=== PATIENT | female | born 1935 | race Caucasian/White ===

== ENCOUNTER → 2016-05-07 | Outpatient (CLI) | payer OTHER ==
--- NOTE | 2016-05-07 12:17 | DX ---
Thoracolumbar Spine; 2 Views Reason for examination: Postoperative followup; comparison October 04, 2015. Findings: Postoperative changes of lumbar fusion are seen with rods and pedicle screws extending from T12 to S1. The hardware is intact. There is a scoliotic curvature convex towards the right. Disk spa ce prostheses are positioned from from L2-L3 to L5-S1. A spinous process clamp is present at T12-L1. Aortic calcification is noted without aneurysmal dilatation. There has been a prior right hip arthrop lasty. Impression: Stable postoperative findings of spinal fusion with intact hardware.
== END ==
LOC: FIMAGING 09:01
PROVIDERS: ATTEND Physician Assistant Surgical
DX: M43.26 Fusion of spine, lumbar region (principal)

== ENCOUNTER → 2017-06-29 | Outpatient (CLI) | payer OTHER | LOC: FIMAGING 14:26 | PROVIDERS: ATTEND Physician Assistant Surgical | DX: T84.296A Other mechanical complication of internal fixation device of vertebrae, initial encounter (principal); Y83.9 Surgical procedure, unspecified as the cause of abnormal reaction of the patient, or of later complication, without mention of misadventure at the time of the procedure; Z98.1 Arthrodesis status ==

== ENCOUNTER 2017-11-19 18:27 | Observation (INO) | payer OTHER ==
[2017-11-19] MEDS ORDERED: DILTIAZEM 30 MG TAB PO ONE (19:36)
[2017-11-19] MEDS ORDERED: ACETAMINOPHEN 325 MG TAB PO PRN (19:37)
[2017-11-19] MEDS ORDERED: ONDANSETRON 4 MG/2 ML VIAL IVP PRN (19:37)
[2017-11-19] MEDS ORDERED: ONDANSETRON DISINTEGRATING 4 MG TAB PO PRN (19:37)
[2017-11-19] MEDS ORDERED: FUROSEMIDE 20 MG/2 ML VIAL IVP ONE (19:39)
--- NOTE | 2017-11-19 19:44 | PDGENHP ---
History and Physical - Chief Complaint Acute edema - History of Present Illness PCP: Dr. Ureña Channel Layer: Dr. Rivas HPI: 82 yo F p/w acutely worsening edema located in the bilateral lower extremities with associated weight gain, orthopnea, oliguria, anorexia. The onset of symptoms is approximately 1 week ago, and duration worsening thereafter. She also notes shortness of breath exacerbated by ambulation and exertion. She denies chest pain or palpitations. She reports she is taking all of her home Rx as prescribed. She made her first f/u appointment today w/ Dr. Huff, and he noted that her weight was back up to her pre-hospital weight, and her legs appeared as edematous as they had been pre-hospitalization. Patient does note that she ambulates regularly and does not elevate her legs as much as she was during her recent hospitalization. Her appetite has been poor, and she has not been consuming substantial quantities of fluid, nor has she been adding salt to food. History Information - Allergies/Home Medication List Allergies/Adverse Reactions: No Known Allergies Allergy (Unverified 11/09/17 19:01) Home Medications: Estradiol/Norethindrone Acet [Activella 1 mg-0.5 mg Tablet] 1 each PO Q3D [Last Taken 11/07/17] Acetamn/Diphenhydramine 500/25 [Tylenol PM (*)] 1 tab PO HS 10/18/13 [Last Taken 11/08/17] Ascorbic Acid [Vitamin C 500 mg (*)] 1,000 mg PO DAILY 10/18/13 [Last Taken 07:00] Calcium Carbonate [[id number]] 500 mg PO DAILY 10/18/13 [Last Taken 10/18/13 07:00] Cholecalciferol Vit D3 [Vitamin D3 (*)] 2,000 units PO DAILY 10/18/13 [Last Taken 10/18/13 07:00] Herbals/Supplements -Info Only 1 ea PO DAILY 10/18/13 [Last Taken Unknown] Multivitamins [Multivitamin (*)] 1 tab PO DAILY 10/18/13 [Last Taken 10/18/13 07 :00] Vitamin B Complex [B Complex] 1 tab PO DAILY 10/18/13 [Last Taken 10/18/13 07:00 ] Ibuprofen [Motrin (*)] 200 - 400 mg PO TID PRN 11/09/17 [Last Taken Unknown] I have personally reviewed and updated: family history, medical history, social history, surgical history - Past Medical History atrial fibrillation (with RVR, on Eliquis), CHF (diastolic), hypertension, hyperlipidemia Additional medical history: Moderate MR. possible COPD. iron deficient anemia - Surgical History Additional surgical history: R hip, back, carpal tunnel - Family History Additional family history: son w/ WPW - Social History Smoking Status: Former smoker Alcohol Use: None Drug Use: None Additional social history: independent in ADLs Review of Systems Review of Systems: ROS: 10pt was reviewed & negative except for what was stated in HPI & below Constitutional: Reports: other (weight gain) Cardiac: Reports: edema Respiratory: Reports: shortness of breath Gastrointestinal: Reports: other (anorexia) Physical Exam Physical Exam: Temp Pulse Resp BP Pulse Ox 36.6 C 127 H 20 129/70 H 91 L 11/19/17 19:34 11/19/17 19:34 11/19/17 19:34 11/19/17 19:34 11/19/17 19:34 Constitutional: no apparent distress, not in pain, obese, No uncomfortable Eyes: PERRL, anicteric sclera, EOMI Ears, Nose, Mouth, Throat: moist mucous membranes, hearing normal, ears appear normal, no oral mucosal ulcers Cardiovascular: irregularly irregular, tachycardia, edema (2+ bilat LE), No systolic murmur, No JVD Respiratory: inspiratory crackles (bilat bases), No reduced air movement, No expiratory wheeze, No bronchial breath sounds, No respiratory distress Gastrointestinal: normoactive bowel sounds, soft, non-tender abdomen, distension (moderate), No guarding Skin: warm, other (no hyperpigmentation bilat LE) Neurologic: AAOx3, sensation intact bilaterally, No weakness Psychiatric: interacting appropriately, not anxious, not encephalopathic, thought process linear Lab Data & Imaging Review Visualized and Interpreted imaging results: Yes Interpretation: tele demonstrating Afib RVR rate 120s Assessment & Plan Assessment: 82 yo F p/w acute diastolic CHF exacerbation in setting of uncontrolled Afib RVR Plan: # Diastolic CHF exacerbation. Acute, new prob, further w/u. Reviewed recent records (DC Summary Dr. Jamil Reed 11/12/17 indicating one dose IV lasix, subsequent increase in PO from 20->40mg daily) -suspect recurrence is 2/2 uncontrolled Afib, as well as poor PO absorption in setting of likely bowel wall edema -control rate -give 20mg IV now, then 40mg IV bid tomorrow AM after rate under better control -daily weights/I/O -get BMP now, renal panel daily while on IV diuretics # Afib w/ RVR. Persistent, Dr. Snow's note from 11/12/17 indicates plan for anticoagulation for additional 3 weeks, then DCCV -CHADS-Vasc 4, cont on anticoagulation -increase dilt, give 30mg PO now, then increase AM dosage by 60mg (need pharm rec to see starting dose) -NPO in AM, patient may be appropriate for DCCV/VERNA, given that the plan of rate control and future cardioversion did not yield intended result -d/w Dr. Huff, he reports to me that he has d/w Dr. Sahu, and cardiology recommended representation and will consult during this hospital stay # HTN. Hold home Rx while getting rate control/diuresis # Moderate MR. Chronic, predisposes to AFib, will have surveillance outpt monitoring # Chronic hyponatremia. sNa 130 on most recent discharge, repeat now Diet. Cardiac PPx. High risk, cont eliquis Code. Full, daughter MDPOA Dispo. ADD 11/20 for above reassessments, upgrade to INPT at that time if requiring prolonged LOS/care.
[2017-11-19 20:49] LABS: PLATELET COUNT 401 10^3/uL (150-400)
[2017-11-19] MEDS ORDERED: BENZONATATE 100 MG CAP PO PRN (23:44)
[2017-11-20] MEDS: ACETAMN/DIPHENHYDRAMINE 500/25MG TAB PO SCH ×2 (00:05→20:53)
[2017-11-20] MEDS: APIXABAN 5 MG TAB PO SCH ×4 (00:06→20:49)
[2017-11-20] MEDS ORDERED: DILTIAZEM 30 MG TAB PO ONE (02:00)
[2017-11-20 03:45] LABS: PLATELET COUNT 382 10^3/uL (150-400)
[2017-11-20] MEDS ORDERED: Herbals/Supplements -Info Only PO SCH (09:00)
[2017-11-20] MEDS ORDERED: ATORVASTATIN CALCIUM 20 MG TAB PO SCH (09:00)
[2017-11-20] MEDS ORDERED: FUROSEMIDE 40 MG/4 ML VIAL IVP SCH (09:00)
[2017-11-20] MEDS: DILTIAZEM CD 180 MG CAP PO SCH (09:27)
--- NOTE | 2017-11-20 09:50 | ASMTCMCOM ---
CM Note CM Note Notes: CM reviewed chart for D/C planning. Pt is an 82 y/o female with acutely worsening edema in the bilateral lower extremeties with associated weight gain, orthopnea, oliguria and anorexia. Symptoms began approx 1 week ago and have been growing worse. Pt was recently D/Rod from the hospital on 11/12. At that time she was D/Rod home independently and with support from family. CM to follow. D/C Plan: TBD Date Signed: 11/20/2017 09:49 AM Electronically Signed By:Sophia Florez
--- NOTE | 2017-11-20 09:51 | ASMTLACE ---
[facility] Comorbidities - select Answers: Coronary Artery Disease all that apply # of Emergency department Answers: 1-2 visits in the last 6 months Score: 3 Date Signed: 11/20/2017 09:51 AM Electronically Signed By:Sophia Florez
[2017-11-20] MEDS ORDERED: ATROPINE SULFATE 1 MG/10 ML SYR IVP ONE (09:57)
[2017-11-20] MEDS ORDERED: NS 1,000 ML IV ONE (09:57)
--- NOTE | 2017-11-20 09:57 | SOAPPROG ---
[facility] Progress Note Assessment/Plan: Assessment: Cardiology consultation performed and dictated. 82 y/o woman with HTN admitted 11/09-11/12/17 for afib with RVR and acute diastolic CHF. Echo 11/10 showed LVEF 75%, mild LVH and moderate MR. She has been home a week and not doing well. Class III-IV NYHA sx. Denies CP, TIA symptoms or falls. Back in hospital last night with volume overload and afib rates > 100bpm. PLAN: 1)VERNA/CV this AM to return to NSR hopefully. R/B/A discussed with pt and her daughter and they wish to proceed. 2)probably change IV lasix to lasix 40mg PO BID this afternoon. 3)probably home tomorrow AM if improves in NSR which I suspect she will 4)Transitional CHF program with follow up < four days. 5)Please make observation status as suspect could go home Wednesday Thanks. Will follow with you closely. 11/20/17 09:51 Objective: Vital Signs Temp Pulse Resp BP Pulse Ox 36.9 C 99 18 127/90 H 99 11/20/17 07:51 11/20/17 07:51 11/20/17 07:51 11/20/17 09:27 11/20/17 07:51 Laboratory Results 11/20/17 03:23 11/20/17 03:23 11/19/17 11/20/17 11/21/17 05:59 05:59 05:59 Output Total 800 Balance -800 ICD10 Worksheet Patient Problems: Problems Problem Status Onset Atrial fibrillation with RVR Acute CHF (congestive heart failure) Acute Hypertension Acute Hyponatremia Acute Lumbar pain Acute New onset atrial fibrillation Acute Postoperative anemia Acute Postoperative anemia due to acute blood loss Acute Renal insufficiency Acute
[2017-11-20] MEDS ORDERED: BENZONATATE 100 MG CAP PO PRN (10:00)
--- NOTE | 2017-11-20 11:15 | PDANEPAE ---
ANE History of Present Illness A-fib ANE Past Medical History - Cardiovascular History Hx Arrhythmias: Yes - Pulmonary History Hx Oxygen in Use at Home: No Hx Sleep Apnea: No - Endocrine History Hx Diabetes: No - Chronic Pain History Chronic Pain: Yes ANE Review of Systems Review of Systems: ANE Patient History - Allergies Allergies/Adverse Reactions: No Known Allergies Allergy (Unverified 11/09/17 19:01) - Home Medications Home Medications: Estradiol/Norethindrone Acet [Activella 1 mg-0.5 mg Tablet] 1 each PO Q3D [Last Taken 11/16/17] Acetamn/Diphenhydramine 500/25 [Tylenol PM (*)] 1 tab PO HS 10/18/13 [Last Taken 11/18/17] Ascorbic Acid [Vitamin C 500 mg (*)] 1,000 mg PO DAILY 10/18/13 [Last Taken ] Calcium Carbonate [[id number]-212] 500 mg PO DAILY 10/18/13 [Last Taken 11/18/17] Cholecalciferol Vit D3 [Vitamin D3 (*)] 2,000 units PO DAILY 10/18/13 [Last Taken 11/18/17] Herbals/Supplements -Info Only 1 ea PO DAILY 10/18/13 [Last Taken 11/18/17] Multivitamins [Multivitamin (*)] 1 tab PO DAILY 10/18/13 [Last Taken 11/18/17] Vitamin B Complex [B Complex] 1 tab PO DAILY 10/18/13 [Last Taken 11/18/17] Ibuprofen [Motrin (*)] 200 - 400 mg PO TID PRN 11/09/17 [Last Taken 11/18/17] Furosemide [Lasix 40 MG (*)] 40 mg PO DAILY 11/19/17 [Last Taken 11/19/17 09:00] - Anes Hx Anes Hx: no prior problems - Smoking Hx Smoking Status: Former smoker - Alcohol Use Alcohol Use: None ANE Labs/Vital Signs - Labs Result Diagrams: 11/20/17 03:23 11/20/17 03:23 - Vital Signs Blood Pressure: 127/90 Heart Rate: 99 Respiratory Rate: 18 O2 Sat (%): 99 Height: 167.64 cm Weight: 88.7 kg ANE Physical Exam - Airway Mallampati Score: Class 2 Mouth exam: normal dental/mouth exam - Pulmonary Pulmonary: no respiratory distress - Cardiovascular Cardiovascular: irregularly irregular - ASA Status ASA Status: III ANE Anesthesia Plan Anesthesia Plan: GA with mask, MAC
[2017-11-20] MEDS ORDERED: PROPOFOL 200 MG/20 ML VIAL ONE ×2 (11:17)
--- NOTE | 2017-11-20 11:53 | POSTANESTH ---
Post Anesthetic Evaluation Cardiovascular Status: Similar to Pre-Op Cond Respiratory Status: Similar to Pre-op Cond. Level of Consciousness/Mental Status: Alert and Oriented Pain Control: Adequate, Prn Tx Ordered Nausea/Vomiting Control: Adequate, Prn Tx Ordered Complications Possibly Related to Anesthesia: None Noted
--- NOTE | 2017-11-20 11:56 | CPEKG ---
Heart Rate: 85 RR Interval: 706 P-R Interval: 188 QRSD Interval: 98 QT Interval: 372 QTC Interval: 443 P Sarah Ann: 77 QRS Sarah Ann: -30 T Wave Sarah Ann: 73 EKG Severity - ABNORMAL ECG - EKG Impression: SINUS RHYTHM EKG Impression: LEFT AXIS DEVIATION EKG Impression: ABNRM R PROG, CONSIDER ASMI OR LEAD PLACEMENT Electronically Signed By: Mat Remy 20-Nov-2017 12:40:02
--- NOTE | 2017-11-20 12:18 | GCON ---
[f rep st] CONSULTATION CARDIOLOGY CONSULT DATE OF CONSULTATION: 11/20/2017 REASON FOR CONSULTATION: Shortness of breath at rest and walking 10 feet with rapid atrial fibrillat ion and decompensated diastolic heart failure. HISTORY OF PRESENT ILLNESS: The patient is an 82-year-old woman with longstanding history of hyperte nsion and iron deficiency anemia and hyperlipidemia. She was admitted 11/09/2017 through 11/12/2017 with new onset atrial fibrillation and diastolic heart failure. An echo demonstrated an LVEF of 75% with mild concentric left ventricular hypertrophy and moderate mitral regurgitation with known tricus pid insufficiency. She was started on Lasix, long-acting diltiazem and Eliquis. She has been home f or about a week and not feeling well. She is not getting stronger. She continues to have shortness of breath at rest and definitely walking 10 feet. She reports no chest pain, PND, TIA symptoms or bl eeding. She was brought back into the hospital last night with rapid atrial fibrillation. This morn ing, she is short of breath at rest, but not in pain. Her BNP level is 2740. PAST MEDICAL HISTORY: Persistent atrial fibrillation, diastolic heart failure, hypertension, hyperli pidemia, iron deficiency anemia and malnutrition. PAST SURGICAL HISTORY: No significant surgeries. CURRENT MEDICATIONS: Eliquis 5 mg twice daily, atorvastatin 20 mg per day, diltiazem CD 180 mg per d ay, Lasix 40 mg IV twice daily. ALLERGIES: No known drug allergies. SOCIAL HISTORY: The patient usually lives independently. She denies tobacco or significant alcohol intake. FAMILY HISTORY: Unremarkable for premature coronary artery disease. REVIEW OF SYSTEMS: The patient reports no hemoptysis or purulent sputum production. She has no feve rs or chills. She reports no GI bleed symptoms such as hematemesis, melena, or bright red blood per rectum. Rest of 10-point review of systems is negative. PHYSICAL EXAM: VITAL SIGNS: Weight 88.7 kg. Pulse 99 and atrial fibrillation. Blood pressure 93/6 9, respirations 22, 2 L/minutes supplemental oxygen 99%. GENERAL: An older appearing woman in no ac terrence distress without chest pain or using accessory respiratory muscles. EYES: Pupils equal and reac tive to light. ENT: Oral mucosa with no cyanosis. NECK: Jugular venous pressure to 7-8 cm. Carot id pulses 2+ bilaterally with no obvious bruits. Neck with no nuchal rigidity. LUNGS: Clear to aus cultation bilaterally without rales, rhonchi, or wheezing. HEART: Irregularly irregular with 1/6 no nradiating systolic murmur and no S3. ABDOMEN: Soft and nontender. No hepatosplenomegaly. No guar ding. No obvious ascites. EXTREMITIES: 2+ peripheral pulses including femoral and pedal pulses. 1+ bilateral pretibial edema. MUSCULOSKELETAL: No scoliosis. NEURO: Normal affect and mood. SKIN: No bleeding or cyanosis. LABS: Sodium 132, potassium 3.8, chloride 96, bicarb 28, BUN 26, creatinine 1.1, glucose 112. White count 9.0, hematocrit 31, platelets 382,000, MCV 91. NT proBNP level 2740. LFTs normal except for albumin low at 2.8. IMPRESSION AND RECOMMENDATIONS: 82-year-old woman with continued diastolic heart failure with class 3-4 [place] [employer] symptoms. On exam, she is euvolemic to mildly hypervolemic. I think the loss of her atrial kick and continued fast heart rates are what is keeping her decompensated. We ought to try to restore sinus rhythm today. PLAN: 1. We will do a VERNA and cardioversion today in hopes of restoring normal sinus rhythm. 2. If we can get her back into sinus rhythm, would stop her IV Lasix and put her on Lasix 40 mg p.o. twice daily. 3. Continue on diltiazem and Eliquis and Lipitor. 4. Hopefully, back in sinus rhythm, she will be able to be discharged home tomorrow with close follo wup in the [facility]. Copy requested to: Patient's chart at [facility] /[id number]/MODL
[2017-11-20] MEDS: ASCORBIC ACID 500 MG TAB PO SCH (12:41)
[2017-11-20] MEDS: CHOLECALCIFEROL VIT D3 1,000 UNITS TAB PO SCH (12:41)
[2017-11-20] MEDS: MULTIVITAMINS 1 EACH TAB PO SCH (12:42)
[2017-11-20] MEDS: CALCIUM CARBONATE 500 MG TAB PO SCH (12:42)
[2017-11-20] MEDS: VITAMIN B COMPLEX 1 EA CAP/TAB PO SCH (12:42)
[2017-11-20] MEDS: ATORVASTATIN CALCIUM 20 MG TAB PO SCH (12:43)
--- NOTE | 2017-11-20 12:51 | ECHO ---
[email or web address] [address] [address] Main: [phone] Fax: Transesophageal Echocardiography Name: RONNELL BUSCH MR#: [id number] Study Date: 11/20/2017 Study Time: 10:38 AM Date of : 1935 Age: 82 year(s) Height: 167.6 cm (66 in.) Weight: 88.45 kg (195 lb.) BSA: 1.98 m2 Gender: Female Examination: VERNA Indication: Afib with diastolic CHF and moderate MR Image Quality: Contrast: Requested by: Cristobal Villatoro Heart Rate: Rhythm: BP: 127 mmHg/99 mmHg Procedure Staff Endless Bed Drum Sander: Lamar Palencia RDCS Reading Physician: Cristobal Villatoro MD Requesting Provider: VERNA Exam Details Conclusions: 1)Normal LV systolic function with a LVEF of 50-60%. 2)Mild to moderate left atrial enlargement noted. 3)Trileaflet aortic valve with no or AI noted. 4)Moderate MR without MV prolapse. 5)Mild to moderate TR noted. 6)No cardiac clot seen in any of four cardiac chambers or left atrial appendage. There is moderate trabecullar tissue seen in LAURA. PW doppler in LAURA 30 cm/sec. 7)No ASD or PFO seen by color Doppler. 8)Normal size ascending thoracic aorta 9)Small to moderate, circumferential pericardial effusion with no tamponade. PLAN: Proceeded with and did successful CV to NSR. Measurements: Chambers Valvular Assessment AV/MV Valvular Assessment TV/PV Normal Normal Normal Name Value Range Name Value Range Name Value Range Additional Measurements: Findings: Left Ventricle: Normal global systolic LV function. Patient: RONNELL BUSCH Study Date: 11/20/2017 Page 1 of 2 10:38 AM Left Atrial Appendage: No LAURA thrombus (trabeculae visualized within).. Mitral Valve: Moderate mitral valve regurgitation is present. Aortic Valve: The aortic valve is tri-leaflet. There is no aortic valve regurgitation. Tricuspid Valve: Mild to moderate tricuspid valve regurgitation. Pericardium: Small to moderate pericardial effusion. l1n (No Signature Object) Patient: RONNELL BUSCH Study Date: 11/20/2017 Page 2 of 2 10:38 AM [id number]
--- NOTE | 2017-11-20 13:19 | CPR ---
[f rep st] NONINVASIVE CARDIAC PROCEDURE REPORT DATE OF PROCEDURE: 11/20/2017 PROCEDURE PERFORMED: Electrical cardioversion. INDICATIONS: Atrial fibrillation with rapid ventricular response and decompensated diastolic heart f ailure. CONSENT: Signed. Risks, benefits, and alternatives discussed with patient and her daughter. They w ished to proceed. TECHNICAL DIFFICULTIES: None. MEDICATIONS USED: Propofol 150 mg IV per anesthesia service in conjunction with transesophageal echo done immediately beforehand. DESCRIPTION OF PROCEDURE: A transesophageal echo was done immediately beforehand, which demonstrated no evidence of cardiac thrombus. In particular, no left atrial thrombus. The patient was initially in atrial fibrillation at a heart rate of 107 beats per minute with a blood pressure of 100/64. Wit h adequate sedation, a 250 joule synchronized shock was delivered with AP pads. This converted her t o sinus rhythm at 86 beats per minute with a post cardioversion blood pressure of 117/61. She awoke from sedation with no new neurological deficits. COMPLICATIONS: None. FINAL IMPRESSIONS: Successful cardioversion of atrial fibrillation to sinus rhythm with synchronized 250-joule shock. /[id number]/MODL
[2017-11-20] MEDS: FUROSEMIDE 40 MG TAB PO SCH (16:25)
--- NOTE | 2017-11-20 19:19 | HOSPPROG ---
Hospitalist Progress Note Assessment/Plan: 82 yo F p/w acute diastolic CHF exacerbation in setting of uncontrolled Afib RVR Plan: 1. Atrial fibrillation with RVR: Related to valve disease. Successful TTE- guided DCCV today with taoist of sinus rhythm. Continue diltiazem and apixaban (cgfet0pbhx=1). Monitor on telemetry. 2. Decompensated diastolic heart failure: Precipitated by loss of atrial kick from above. Mildly hypervolemic, will switch to PO lasix 40 BID, monitor I/Os. Management of BP per below. 3. Acute hypoxemic respiratory insufficiency: Requiring 2L via NC. Suspect mild pulmonary edema. Diuresing as above. Will assess need for supplemental oxygen prior to discharge. Prior notes recommended outpatient PFTs. 4. Moderate MR: Chronic although progressed on recent TTE. Will need to follow up with cardiology re: monitoring and possible repair. 5. HTN: BP controlled with CCB. 6. Hyponatremia: Chronic and at/near baseline 128-132. 7. Normocytic anemia: Stable and at baseline with no e/o bleeding. Needs further outpatient evaluation likely with endoscopy if not done already. 8. Leukocytosis: Resolved, likely reactive. VTE ppx: apixaban Diet: cardiac Code: Full, daughter MDPOA Dispo: Will continue admission under observation with likely discharge tomorrow AM if remains in NSR. Subjective: Had successful DCCV this morning. Feeling well afterwards except having some mild shortness of breath. Denies chest pain, dizziness. Objective: Vital Signs Temp Pulse Resp BP Pulse Ox 36.9 C 80 15 125/69 H 92 11/20/17 07:51 11/20/17 16:27 11/20/17 16:27 11/20/17 16:27 11/20/17 16:27 Laboratory Results 11/20/17 03:23 11/20/17 03:23 11/19/17 11/20/17 11/21/17 05:59 05:59 05:59 Output Total 800 1000 Balance -800 -1000 - Physical Exam Constitutional: no apparent distress, appears nourished, not in pain Eyes: PERRL, anicteric sclera, EOMI Ears, Nose, Mouth, Throat: moist mucous membranes, hearing normal, ears appear normal, no oral mucosal ulcers Cardiovascular: regular rate and rhythym, no murmur, rub, or gallop, edema (2+ BLE pitting edema), other (difficult to assess JVD 2/2 habitus) Respiratory: no respiratory distress, no rales or rhonchi, clear to auscultation Gastrointestinal: normoactive bowel sounds, soft, non-tender abdomen, no palpable masses Genitourinary: no bladder fullness, no bladder tenderness, no renal bruits Skin: no rashes or abrasions, no fluctuance, no induration Musculoskeletal: full muscle strength, no muscle tenderness, normal joint ROM Neurologic: AAOx3, sensation intact bilaterally Psychiatric: interacting appropriately, not anxious, not encephalopathic, thought process linear ICD10 Worksheet Patient Problems: Problems Problem Status Onset Atrial fibrillation with RVR Acute CHF (congestive heart failure) Acute Hypertension Acute Hyponatremia Acute Lumbar pain Acute New onset atrial fibrillation Acute Postoperative anemia Acute Postoperative anemia due to acute blood loss Acute Renal insufficiency Acute
--- NOTE | 2017-11-21 08:32 | SOAPPROG ---
SOAP Progress Note Assessment/Plan: Assessment: 82 y/o woman with diastolic CHF and afib with RVR s/p VERNA/CV showing LVEF 55%, moderate MR, mild-moderate TR and no cardiac clots. She is feeling better in NSR. Now FERRER at 100ft with no rest shortness of breath or CP or near syncope. She is probably mildly hypervolemic but serum NA and NT-pro BNP level all improving. REC: 1)add KCL 20meq PO BID to meds upon discharge. 2)okay to discharge home today with supplemental O2 if she is hypoxic on RA walking hallways today. 3)f/u [facility] in two days (Wednesday) with CHF ORACLE PROGRAMMERNiall Quiñonez with labs two hours beforehand (CBC, BMP and BNP level). 11/21/17 08:28 Subjective: feels better. "I can breath again." FERRER at 100ft. Denies palpitations, PND, CP or TIA. No sore throat. Objective: Vital Signs Temp Pulse Resp BP Pulse Ox 36.8 C 80 20 104/68 97 11/21/17 07:28 11/21/17 07:28 11/21/17 07:28 11/21/17 07:28 11/21/17 07:28 Laboratory Results 11/21/17 03:55 11/21/17 03:55 11/20/17 11/21/17 11/22/17 05:59 05:59 05:59 Intake Total 550 Output Total 800 1750 Balance -800 -1200 Physical Exam - Physical Exam General Appearance: alert EENT: PERRL/EOMI Neck: non-tender Respiratory: lungs clear Cardiac/Chest: regular rate, rhythm, JVD (jvp to 8cm.), systolic murmur, No gallop Peripheral Pulses: 2+: carotid (R), carotid (L), femoral (R), femoral (L), dorsalis-pedis (R), dorsalis-pedis (L) Abdomen: non-tender, No guarding, No rebound Skin: warm/dry Extremities: pedal edema Neuro/Psych: oriented x 3 ICD10 Worksheet Patient Problems: Problems Problem Status Onset Atrial fibrillation with RVR Acute CHF (congestive heart failure) Acute Hypertension Acute Hyponatremia Acute Lumbar pain Acute New onset atrial fibrillation Acute Postoperative anemia Acute Postoperative anemia due to acute blood loss Acute Renal insufficiency Acute
--- NOTE | 2017-11-21 08:49 | CPEKG ---
Heart Rate: 90 RR Interval: 667 P-R Interval: 180 QRSD Interval: 94 QT Interval: 352 QTC Interval: 431 P Vers[place]: 76 QRS [place]: -36 T Wave Vershire: 94 EKG Severity - ABNORMAL ECG - EKG Impression: SINUS RHYTHM EKG Impression: MULTIPLE VENTRICULAR PREMATURE COMPLEXES EKG Impression: LEFT AXIS DEVIATION EKG Impression: NONSPECIFIC T ABNORMALITIES, LATERAL LEADS Electronically Signed By: Mat Remy 21-Nov-2017 11:40:07
[2017-11-21] MEDS ORDERED: DILTIAZEM 60 MG PO SCH (09:00)
[2017-11-21] MEDS: APIXABAN 5 MG TAB PO SCH (09:20)
[2017-11-21] MEDS: ATORVASTATIN CALCIUM 20 MG TAB PO SCH (09:21)
[2017-11-21] MEDS: MULTIVITAMINS 1 EACH TAB PO SCH (09:22)
[2017-11-21] MEDS: CALCIUM CARBONATE 500 MG TAB PO SCH (09:22)
[2017-11-21] MEDS: VITAMIN B COMPLEX 1 EA CAP/TAB PO SCH (09:22)
[2017-11-21] MEDS: DILTIAZEM CD 180 MG CAP PO SCH (09:22)
[2017-11-21] MEDS: POTASSIUM CL 20 MEQ TAB PO SCH ×2 (09:23→11:26)
[2017-11-21] MEDS: FUROSEMIDE 40 MG TAB PO SCH (09:23)
[2017-11-21] MEDS: ASCORBIC ACID 500 MG TAB PO SCH (09:23)
[2017-11-21] MEDS: CHOLECALCIFEROL VIT D3 1,000 UNITS TAB PO SCH (09:23)
--- NOTE | 2017-11-21 10:44 | PDHOMEO2F ---
Home Oxygen Face to Face Home Orders: I certify that a physician or a nurse practitioner or physician's staff assistant has had a [id number] encounter with this patient on the date of this order due to the diagnosis listed, which relates to the primary reason the patient requires home oxygen. Alternative treatments have been tried, or considered, and deemed ineffective. It is anticipated that supplemental oxygen will result in improvement with treatment. Home oxygen qualifying diagnosis: acute hypoxemia 2/2 pulmonary edema SpO2 on room air (%): 88 Frequency of home oxygen needed: continuous Home oxygen liters per minute: 3 Home oxygen delivery device: nasal cannula Concentrator: Yes E-tanks for mobility and back up: Yes If ordering portable O2, is the patient mobile in the home?: Yes I certify that, based on these findings, the home oxygen is medically necessary for this patient for the following length of time. Length of time home oxygen needed: 99 years
--- NOTE | 2017-11-21 11:02 | ASDISCHSUM ---
Discharge Information Plan Status:Home with DME or Oxygen Medically Cleared to Leave:11/21/2017 Discharge Date:11/21/2017 CM D/C Disposition:Home, Routine, Self-Care ADT D/C Disposition:Home, Routine, Self-Care Projected Discharge Date:11/21/2017 Transportation at D/C:Family Discharge Delay Reason: Follow-Up Date:11/21/2017 Discharge Slot: Final Diagnosis: Placement Information Patient Contact Information Contact Name:PASTORATAMIGUEL Relationship:Daughter Address: Work Phone: [place]:[facility] Alternate Phone: [facility]/[employer] Code:[place] Email: Financial Information Financial Class:Medicare Primary Plan Desc:MEDICARE INPATIENT Primary Plan Number:[id number] Secondary Plan Desc:[employer] Secondary Plan Number:[id number] Assessment Information [facility] CM Progress Note CM Note CM Note Notes: CM reviewed chart for D/C planning. Pt is an 82 y/o female with acutely worsening edema in the bilateral lower extremeties with associated weight gain, orthopnea, oliguria and anorexia. Symptoms began approx 1 week ago and have been growing worse. Pt was recently D/Rod from the hospital on 11/12. At that time she was D/Rod home independently and with support from family. CM to follow. D/C Plan: TBD Date Signed: 11/20/2017 09:49 AM Electronically Signed By:Sophia Florez LACE LACE Comorbidities - select Answers: Coronary Artery Disease all that apply # of Emergency department Answers: 1-2 visits in the last 6 months Score: 3 Date Signed: 11/20/2017 09:51 AM Electronically Signed By:Sophia Florez Intervention Information
--- NOTE | 2017-11-21 11:04 | ASMTCMCOM ---
CM Note CM Note Notes: Chart reviewed. Medically cleared for discharge to home. Will dc on oxygen. No other needs identified at this time. CM available if needs change. Plan: TBD Date Signed: 11/21/2017 11:04 AM Electronically Signed By:Bianka Pereyra RN
[2017-11-21 12:16] VITALS: BP 121/82
--- NOTE | 2017-11-22 17:27 | PDDCSUM ---
Discharge Summary Discharge Summary: Date of Admission: 11/20/2017 Date of Discharge: 11/21/2017 Consultants: none Procedures: none Brief Hospital Course by Diagnosis: 82 yo F p/w acute diastolic CHF exacerbation in setting of uncontrolled Afib RVR 1. Atrial fibrillation with RVR: Related to mitral valve disease. Successful TTE -guided DCCV with orthodoxy of sinus rhythm. Discharged on diltiazem and apixaban ([id number]). 2. Decompensated diastolic heart failure: Mild with improved volume status but not totally euvolemic on discharge. Precipitated by loss of atrial kick from above. Increased lasix from 40mg QD to BID and added KCl supplements. Advised to monitor daily weights and follow up with transitional CHF program. 3. Acute hypoxemic respiratory insufficiency: Requiring 3L via NC at discharge, likely related to pulmonary edema. Diuresing as above. Prior notes recommended outpatient PFTs. 4. Moderate MR: Chronic although progressed on recent TTE. Will need to follow up with cardiology re: monitoring and possible repair. 5. HTN: BP controlled with CCB. 6. Hyponatremia: Chronic and at/near baseline 128-132. 7. Normocytic anemia: Stable and at baseline with no e/o bleeding. Needs further outpatient evaluation likely with endoscopy. 8. Leukocytosis: Resolved, likely reactive. Pending Tests at Discharge: none Items to Follow Up: 1. F/u [facility] on 11/23 with Lore Quiñonez with CBC/ BMP/BNP prior to visit 2. Assess need for ongoing supplemental O2 3. Recommend obtaining PFTs 4. Recommend evaluation of anemia with endoscopy Medications: Please refer to EMR for complete list. This admission we increased lasix from 40mg QD to BID and added KCl supplementation, otherwise her medications were continued. Physical Exam: Vitals reviewed. Patient alert and in no distress. She was examined on day of discharge.
== END 2017-11-21 13:18 | disposition home or self-care (01) ==
LOC: F2W 19:01
PROVIDERS: ADMIT Internal Medicine; ATTEND Internal Medicine
PROC: B245ZZ4 Ultrasonography of Left Heart, Transesophageal (ICD-10-PCS; principal; 2017-11-19)
PROC: 5A2204Z Restoration of Cardiac Rhythm, Single (ICD-10-PCS; principal; 2017-11-19)
DX: I48.1 Persistent atrial fibrillation (principal); I50.31 Acute diastolic (congestive) heart failure; E78.5 Hyperlipidemia, unspecified; I11.0 Hypertensive heart disease with heart failure; E87.1 Hypo-osmolality and hyponatremia; Z79.01 Long term (current) use of anticoagulants; Z87.891 Personal history of nicotine dependence
CPT/HCPCS: 92960; 93005; 93312; 97116; 97161; G0378; G8978; G8979; G8980; J1940; J2704